=== PATIENT | male | born 1985 | race Caucasian/White ===

== ENCOUNTER 2016-06-22 06:46 | Emergency (ER) | payer SELFPAY ==
[~2016-06-22] VITALS: Ht 167.6 cm; Wt 83.7 kg
[2016-06-22] MEDS ORDERED: LORazepam 1MG TABLET ONE (07:17)
[2016-06-22 07:21] VITALS: BP 127/82
[2016-06-22] MEDS ORDERED: LORazepam 1MG TABLET PO ONE (07:30)
== END 2016-06-22 07:53 | disposition home or self-care (01) ==
LOC: ED 07:47
DX: F15.280 Other stimulant dependence with stimulant-induced anxiety disorder (principal); F11.229 Opioid dependence with intoxication, unspecified; F15.229 Other stimulant dependence with intoxication, unspecified
CPT/HCPCS: 99283